=== PATIENT | male | born 1950 | race Native Hawaiian/Other Pacific Islander ===

== ENCOUNTER 2017-07-09 08:00 | Outpatient (CLI) | payer OTHER ==
[2017-07-09 11:03] LABS: PLATELET COUNT 349 K/uL (142-355)
[2017-07-09 11:58] LABS: POTASSIUM 4.1 mmol/L (3.6-5.2)
== END 2017-07-09 19:21 | disposition home or self-care (01) ==
LOC: LABW 08:00
PROVIDERS: Internal Medicine
DX: Z00.00 Encounter for general adult medical examination without abnormal findings (principal); E78.4 Other hyperlipidemia; Z79.899 Other long term (current) drug therapy; Z12.5 Encounter for screening for malignant neoplasm of prostate; Z51.81 Encounter for therapeutic drug level monitoring
CPT/HCPCS: 36415; 80053; 80061; 82043; 82570; 83036; 84153; 84443; 85027; 86900; 86901

== ENCOUNTER 2018-07-19 07:52 | Outpatient (CLI) | payer OTHER ==
[2018-07-19 08:12] LABS: PLATELET COUNT 284 K/uL (142-355)
[2018-07-19 08:38] LABS: POTASSIUM 4.1 mmol/L (3.6-5.2)
== END 2018-07-19 21:00 | disposition home or self-care (01) ==
LOC: LABW 07:52
PROVIDERS: Internal Medicine
DX: Z00.00 Encounter for general adult medical examination without abnormal findings (principal); E78.5 Hyperlipidemia, unspecified; Z12.5 Encounter for screening for malignant neoplasm of prostate; Z79.899 Other long term (current) drug therapy
CPT/HCPCS: 36415; 80053; 80061; 83036; 84153; 84443; 85027

== ENCOUNTER 2019-05-26 07:43 | Outpatient (CLI) | payer OTHER ==
[2019-05-26 09:05] LABS: PLATELET COUNT 245 K/uL (142-355)
== END 2019-05-26 22:00 | disposition home or self-care (01) ==
LOC: LABW 07:43
PROVIDERS: Internal Medicine
DX: R00.2 Palpitations (principal); R07.89 Other chest pain; E78.49 Other hyperlipidemia; Z79.899 Other long term (current) drug therapy
CPT/HCPCS: 36415; 80053; 80061; 85027

== ENCOUNTER 2019-08-25 07:24 | Outpatient (CLI) | payer OTHER ==
[2019-08-25 08:13] LABS: PLATELET COUNT 251 K/uL (142-355)
[2019-08-25 08:15] LABS: POTASSIUM 3.9 mmol/L (3.6-5.2)
== END 2019-08-25 19:28 | disposition home or self-care (01) ==
LOC: LABW 07:24
PROVIDERS: Internal Medicine
DX: Z00.00 Encounter for general adult medical examination without abnormal findings (principal); E78.49 Other hyperlipidemia; Z12.5 Encounter for screening for malignant neoplasm of prostate; Z79.899 Other long term (current) drug therapy
CPT/HCPCS: 36415; 80053; 80061; 83036; 84153; 84443; 85027

== ENCOUNTER 2020-09-06 08:01 | Outpatient (CLI) | payer OTHER ==
[2020-09-06 08:20] LABS: PLATELET COUNT 206 K/uL (142-355)
[2020-09-06 08:43] LABS: POTASSIUM 4.3 mmol/L (3.6-5.2)
== END 2020-09-06 23:59 | disposition home or self-care (01) ==
LOC: LABW 08:01
PROVIDERS: ATTEND Internal Medicine
DX: E78.49 Other hyperlipidemia (principal); Z79.899 Other long term (current) drug therapy; Z12.5 Encounter for screening for malignant neoplasm of prostate
CPT/HCPCS: 36415; 80053; 80061; 83036; 84153; 84443; 85027

== ENCOUNTER 2021-09-16 08:04 | Outpatient (CLI) | payer OTHER ==
[2021-09-16 08:18] LABS: PLATELET COUNT 246 K/uL (142-355)
[2021-09-16 08:52] LABS: POTASSIUM 3.9 mmol/L (3.6-5.2)
== END 2021-09-16 18:55 | disposition home or self-care (01) ==
LOC: LABW 08:04
PROVIDERS: ATTEND Internal Medicine
DX: Z00.00 Encounter for general adult medical examination without abnormal findings (principal); E78.49 Other hyperlipidemia; Z12.5 Encounter for screening for malignant neoplasm of prostate; Z79.899 Other long term (current) drug therapy
CPT/HCPCS: 36415; 80053; 80061; 83036; 84153; 84443; 85027

== ENCOUNTER 2022-09-22 07:59 | Outpatient (CLI) | payer OTHER ==
[2022-09-22 08:13] LABS: PLATELET COUNT 227 K/uL (142-355)
== END 2022-09-22 19:18 | disposition home or self-care (01) ==
LOC: LABW 07:59
PROVIDERS: ATTEND Internal Medicine
DX: Z00.00 Encounter for general adult medical examination without abnormal findings (principal); E78.49 Other hyperlipidemia; Z12.5 Encounter for screening for malignant neoplasm of prostate; Z79.899 Other long term (current) drug therapy
CPT/HCPCS: 36415; 80053; 80061; 83036; 84153; 84443; 85027